=== PATIENT | female | born 1985 | race Caucasian/White ===

== ENCOUNTER 2017-07-24 06:45 | Inpatient (IN) | payer OTHER, MEDICAID ==
[2017-07-24] MEDS ORDERED: ACETAMINOPHEN 325 MG TAB PO ×2 (07:00→12:00)
[2017-07-24] MEDS: ONDANSETRON 4 MG INJ IV ×2 (07:30→16:06)
[2017-07-24] MEDS: HYDROmorphONE 0.5 MG/0.5 ML SYG IV (07:30)
[2017-07-24] MEDS ORDERED: NACL 0.9% 3 ML SYG IV (12:00)
[2017-07-24 13:04] LABS: ALANINE AMINOTRANSFERASE 228 IU/L (13-69); ALBUMIN 3.8 g/dl (3.3-4.9); ALBUMIN/GLOBULIN RATIO 1.02; ALKALINE PHOSPHATASE 139 IU/L (42-121); ANION GAP 13 (8-16); ASPARTATE AMINO TRANSFERASE 268 IU/L (15-46); BILIRUBIN,INDIRECT 0.7 mg/dl (0-1.1); BILIRUBIN,TOTAL 0.7 mg/dl (0.2-1.3); BLOOD UREA NITROGEN 12 mg/dl (7-20); CALCIUM 8.9 mg/dl (8.4-10.2); CARBON DIOXIDE 28 mmol/L (21-31); CHLORIDE 107 mmol/L (97-110); CREATININE 0.73 mg/dl (0.44-1.00); GLUCOSE 90 mg/dl (70-220); LIPASE 149 U/L (23-300); POTASSIUM 4.2 mmol/L (3.5-5.1); SODIUM 144 mmol/L (135-144); TOTAL PROTEIN 7.5 g/dl (6.1-8.1)
[2017-07-24] MEDS: metroNIDAZOLE 500 MG/NS (PMX) 100 ML IVPB ×2 (13:04→22:51)
[2017-07-24] MEDS: SOD CHLORIDE 0.9% 1,000 ML IV ×2 (13:04→23:00)
[2017-07-24] MEDS: morphine 2 MG INJ IV (16:05)
[2017-07-24] MEDS: FAMOTIDINE 20 MG TAB PO (21:34)
[2017-07-24] MEDS: CIPROFLOXACIN 400MG/D5W 200 ML IVPB (21:34)
[2017-07-25] MEDS: LIDOCAINE 1%/EPI 30 ML INJ INJ
[2017-07-25] MEDS: BUPIVACAINE 0.5% 30 ML VIAL INJ
[2017-07-25] MEDS: SOD CHLORIDE 0.9% 1,000 ML IV ×2 (02:10→18:40)
[2017-07-25] MEDS: metroNIDAZOLE 500 MG/NS (PMX) 100 ML IVPB ×3 (06:01→22:09)
[2017-07-25 06:07] LABS: ADD MAN DIFF? NO
[2017-07-25 06:20] LABS: BASOPHILS % 0.5 % (0.0-2.0); EOSINOPHILS # 0.2 10^3/ul (0.0-0.5); EOSINOPHILS % 2.7 % (0.0-7.0); HEMATOCRIT 34.8 % (37.0-47.0); MEAN CORPUSCULAR HEMOGLOBIN 26.1 pg (29.0-33.0); MEAN CORPUSCULAR HGB CONC 31.6 g/dl (32.0-37.0); MEAN CORPUSCULAR VOLUME 82.7 fl (82.0-101.0); MEAN PLATELET VOLUME 8.8 fl (7.4-10.4); MONOCYTE # 0.5 10^3/ul (0.3-0.9); MONOCYTES % 5.8 % (0.0-11.0); NEUTROPHIL # 5.6 10^3/ul (1.6-7.5); NEUTROPHILS % 66.8 % (39.0-77.0); PLATELET COUNT 457 10^3/UL (140-415); RED BLOOD COUNT 4.21 10^6/ul (4.20-5.40); RED CELL DISTRIBUTION WIDTH 13.5 % (11.5-14.5)
[2017-07-25 06:20] LABS: WHITE BLOOD COUNT 8.4 10^3/ul (4.8-10.8)
[2017-07-25 06:43] LABS: ALANINE AMINOTRANSFERASE 160 IU/L (13-69); ALBUMIN 3.2 g/dl (3.3-4.9); ALBUMIN/GLOBULIN RATIO 0.94; ALKALINE PHOSPHATASE 121 IU/L (42-121); ANION GAP 11 (8-16); ASPARTATE AMINO TRANSFERASE 99 IU/L (15-46); BILIRUBIN,INDIRECT 0.5 mg/dl (0-1.1); BILIRUBIN,TOTAL 0.5 mg/dl (0.2-1.3); BLOOD UREA NITROGEN 9 mg/dl (7-20); CALCIUM 8.4 mg/dl (8.4-10.2); CARBON DIOXIDE 25 mmol/L (21-31); CHLORIDE 110 mmol/L (97-110); CHOL/HDL RATIO 4.7 RATIO; CHOLESTEROL 180 mg/dl (100-200); GLUCOSE 104 mg/dl (70-220); HDL CHOLESTEROL 38 mg/dl (34-82); LDL CHOLESTEROL,CALCULATED 117 mg/dl; MAGNESIUM 1.8 mg/dl (1.7-2.5); PHOSPHORUS 3.9 mg/dl (2.5-4.9); SODIUM 142 mmol/L (135-144); TOTAL PROTEIN 6.6 g/dl (6.1-8.1); TRIGLYCERIDES 124 mg/dl (0-149)
[2017-07-25 06:44] LABS: HEMOGLOBIN A1C 5.8 % (0-5.9)
[2017-07-25] MEDS: FAMOTIDINE 20 MG TAB PO ×2 (09:00→20:39)
[2017-07-25] MEDS: CIPROFLOXACIN 400MG/D5W 200 ML IVPB ×2 (09:31→20:39)
[2017-07-25] MEDS ORDERED: BUPIVACAINE 0.5% (SDV) 30 ML INJ (13:46)
[2017-07-25] MEDS ORDERED: LIDOCAINE 1%/EPI 30 ML INJ (13:46)
[2017-07-25] MEDS ORDERED: MIDAZOLAM 1 MG/ML 2 ML INJ (14:56)
[2017-07-25] MEDS ORDERED: LIDOCAINE 2% (SDV) 5 ML INJ (16:11)
[2017-07-25] MEDS ORDERED: ONDANSETRON 4 MG INJ (16:11)
[2017-07-25] MEDS ORDERED: GLYCOPYRROLATE 0.4 MG INJ (16:11)
[2017-07-25] MEDS ORDERED: KETOROLAC 30 MG INJ (16:11)
[2017-07-25] MEDS ORDERED: NEOSTIGMINE 3 MG/3 ML SYRINGE (16:11)
[2017-07-25] MEDS ORDERED: ROCURONIUM 50 MG INJ (16:11)
[2017-07-25] MEDS ORDERED: CEFAZOLIN 1 GM INJ (16:11)
[2017-07-25] MEDS ORDERED: PROPOFOL 20 ML (16:11)
[2017-07-25] MEDS ORDERED: DIPHENHYDRAMINE 50 MG INJ IV (16:30)
[2017-07-25] MEDS ORDERED: HYDROmorphONE (0.2 MG/ML) 10ML SYG IV ×2 (16:30)
[2017-07-25] MEDS ORDERED: FENTAnyl 50 MCG/ML VIAL IV (16:30)
[2017-07-25] MEDS ORDERED: KETOROLAC 30 MG INJ IV (16:30)
[2017-07-25] MEDS ORDERED: MEPERIDINE 25 MG INJ IV (16:30)
[2017-07-25] MEDS ORDERED: ONDANSETRON 4 MG INJ IV (16:30)
[2017-07-25] MEDS: morphine 2 MG INJ IV ×2 (16:42→20:46)
[2017-07-25] MEDS: ONDANSETRON 4 MG INJ IV ×2 (17:03→22:40)
[2017-07-25] MEDS: HYDROmorphONE 0.5 MG/0.5 ML SYG IM (17:43)
[2017-07-25] MEDS: FENTAnyl 50 MCG/ML VIAL IV (17:44)
[2017-07-26] MEDS: morphine 2 MG INJ IV ×2 (03:01→16:25)
[2017-07-26] MEDS: metroNIDAZOLE 500 MG/NS (PMX) 100 ML IVPB ×3 (05:18→21:18)
[2017-07-26] MEDS: SOD CHLORIDE 0.9% 1,000 ML IV ×3 (05:21→19:42)
[2017-07-26 06:43] LABS: ALANINE AMINOTRANSFERASE 267 IU/L (13-69); ALBUMIN 3.3 g/dl (3.3-4.9); ALBUMIN/GLOBULIN RATIO 0.94; ALKALINE PHOSPHATASE 202 IU/L (42-121); ANION GAP 14 (8-16); ASPARTATE AMINO TRANSFERASE 257 IU/L (15-46); BILIRUBIN,INDIRECT 0.8 mg/dl (0-1.1); BILIRUBIN,TOTAL 1.4 mg/dl (0.2-1.3); BLOOD UREA NITROGEN 8 mg/dl (7-20); CALCIUM 8.3 mg/dl (8.4-10.2); CARBON DIOXIDE 24 mmol/L (21-31); CHLORIDE 106 mmol/L (97-110); CREATININE 0.77 mg/dl (0.44-1.00); GLUCOSE 108 mg/dl (70-220); POTASSIUM 3.7 mmol/L (3.5-5.1); SODIUM 140 mmol/L (135-144); TOTAL PROTEIN 6.8 g/dl (6.1-8.1)
[2017-07-26] MEDS: CIPROFLOXACIN 400MG/D5W 200 ML IVPB ×2 (08:10→20:11)
[2017-07-26] MEDS: FAMOTIDINE 20 MG TAB PO ×2 (08:46→20:14)
[2017-07-26] MEDS: HYDROmorphONE 0.5 MG/0.5 ML SYG IV (12:29)
[2017-07-27] MEDS: morphine 2 MG INJ IV (02:37)
[2017-07-27] MEDS: metroNIDAZOLE 500 MG/NS (PMX) 100 ML IVPB ×3 (05:10→22:08)
[2017-07-27] MEDS: FAMOTIDINE 20 MG TAB PO ×2 (08:42→22:08)
[2017-07-27] MEDS: CIPROFLOXACIN 400MG/D5W 200 ML IVPB ×2 (08:43→21:02)
[2017-07-27] MEDS: SOD CHLORIDE 0.9% 1,000 ML IV ×2 (11:00→21:00)
[2017-07-27] MEDS ORDERED: PROPOFOL 20 ML (11:39)
[2017-07-27] MEDS ORDERED: LIDOCAINE 2% (SDV) 5 ML INJ (11:39)
[2017-07-27] MEDS ORDERED: ROCURONIUM 50 MG INJ (11:40)
[2017-07-27] MEDS ORDERED: DEXAMETHASONE 4 MG/ML 1 ML INJ (11:40)
[2017-07-27] MEDS ORDERED: ONDANSETRON 4 MG INJ (11:41)
[2017-07-27] MEDS ORDERED: FENTAnyl 50 MCG/ML VIAL (11:41)
[2017-07-27 12:26] LABS: ADD UMIC NO; UR ASCORBIC ACID NEGATIVE (NEGATIVE); UR BILIRUBIN (Dip) NEGATIVE (NEGATIVE); UR BLOOD (Dip) NEGATIVE (NEGATIVE); UR CLARITY CLEAR (CLEAR); UR COLOR YELLOW (YELLOW); UR GLUCOSE (Dip) NEGATIVE (NEGATIVE); UR KETONES (Dip) 1+ mg/dL (NEGATIVE); UR LEUKOCYTE ESTERASE (Dip) NEGATIVE Leu/ul (NEGATIVE); UR NITRITE (Dip) NEGATIVE (NEGATIVE); UR SPECIFIC GRAVITY (Dip) 1.004 (1.003-1.030); UR TOTAL PROTEIN (Dip) NEGATIVE (NEGATIVE); UR UROBILINOGEN (Dip) NEGATIVE (NEGATIVE)
[2017-07-27] MEDS ORDERED: IOHEXOL 300MG/ML 30 ML BTL (12:32)
[2017-07-27] MEDS ORDERED: SUCCINYLCHOLINE CHLORIDE 100 MG/5 ML SYG IV (12:51)
[2017-07-27] MEDS ORDERED: KETOROLAC 30 MG INJ IV (13:00)
[2017-07-27] MEDS ORDERED: FENTAnyl 50 MCG/ML VIAL IV (13:00)
[2017-07-27] MEDS: INDOMETHACIN 50 MG SUPP PR (13:00)
[2017-07-27] MEDS ORDERED: ONDANSETRON 4 MG INJ IV (13:00)
[2017-07-27] MEDS: METOCLOPRAMIDE 10 MG INJ IV (14:15)
[2017-07-27] MEDS: ONDANSETRON 4 MG INJ IV (17:03)
[2017-07-28] MEDS: metroNIDAZOLE 500 MG/NS (PMX) 100 ML IVPB (05:19)
[2017-07-28] MEDS: SOD CHLORIDE 0.9% 1,000 ML IV (07:00)
[2017-07-28] MEDS: FAMOTIDINE 20 MG TAB PO (08:21)
[2017-07-28] MEDS: CIPROFLOXACIN 400MG/D5W 200 ML IVPB (08:22)
== END 2017-07-28 13:29 | disposition home or self-care (01) | DRG 417 ==
LOC: E/R 06:45 → MS1 07-27 23:10 → MS3 06:52
PROC: 0FT44ZZ Resection of Gallbladder, Percutaneous Endoscopic Approach (ICD-10-PCS; principal; 2017-07-25 14:53)
PROC: 0FC98ZZ Extirpation of Matter from Common Bile Duct, Via Natural or Artificial Opening Endoscopic (ICD-10-PCS; 2017-07-25 14:53)
PROC: 0F798ZZ Dilation of Common Bile Duct, Via Natural or Artificial Opening Endoscopic (ICD-10-PCS; 2017-07-25 14:53)
DX: K80.66 Calculus of gallbladder and bile duct with acute and chronic cholecystitis without obstruction (principal); K85.10 Biliary acute pancreatitis without necrosis or infection; Z68.42 Body mass index [BMI] 45.0-49.9, adult; E66.9 Obesity, unspecified; Z71.3 Dietary counseling and surveillance
CPT/HCPCS: 74181; 74330; 80053; 80061; 81003; 83036; 83690; 83735; 84100; 84443; 84703; 85025; 88304; 96374; 96375; 99285-25